=== PATIENT | male | born 1960 | race Caucasian/White ===

== ENCOUNTER 2020-03-08 08:32 | Emergency (ER) | payer BC ==
--- NOTE | 2020-03-08 09:11 | ER ---
Nurse's Notes [facility] Name: Shubham Sparks Age: 60 yrs Sex: Male : 1960 Arrival Date: 03/08/2020 Time: 08:34 Bed 8 Private MD: Diagnosis: Low back pain;Muscle spasm of back Presentation: 03/08 08:50 Chief complaint: Patient states: reports of left lower back pain that started vg1 yesterday, 03/07/2020. 08:50 Method Of Arrival: Ambulatory vg1 08:50 Coronavirus screen: Client denies travel out of the [place] in the last 14 days. Ebola vg1 Screen: Patient negative for fever greater than or equal to 101.5 degrees Fahrenheit, and additional compatible Ebola Virus Disease symptoms. Initial Sepsis Screen: Does the patient meet any 2 criteria? No. Patient's initial sepsis screen is negative. Does the patient have a suspected source of infection? No. Patient's initial sepsis screen is negative. Risk Assessment: Do you want to hurt yourself or someone else? Patient reports no desire to harm self or others. Onset of symptoms was March 07, 2020. 08:50 Acuity: HEVER 4 vg1 - Family history:: not pertinent. - Social history:: Smoking status: Patient denies any tobacco usage or history of. - Hospitalizations: : No recent hospitalization is reported. Screenin:55 Abuse screen: Denies threats or abuse. Nutritional screening: No deficits noted. vg1 Tuberculosis screening: No symptoms or risk factors identified. Fall Risk No fall in past 12 months (0 pts). No secondary diagnosis (0 pts). No IV (0 pts). Ambulatory Aid- None/Bed Rest/Nurse Assist (0 pts). Gait- Normal/Bed Rest/Wheelchair (0 pts) Mental Status- Oriented to own ability (0 pts). Total Tejeda Fall Scale indicates No Risk (0-24 pts). Assessment: 08:55 General: Appears in no apparent distress. Behavior is calm, cooperative. Pain: vg1 Complains of pain in Left lower back Pain currently is 5 out of 10 on a pain scale. at worst was 8 out of 10 on a pain scale. Pain began 1 day ago. Is continuous. Neuro: Level of Consciousness is awake, alert, obeys commands, Oriented to person, place, time, situation. Cardiovascular: Patient's skin is warm and dry. Respiratory: Airway is patent Respiratory effort is even, unlabored, Respiratory pattern is regular, symmetrical. GI: No signs and/or symptoms were reported involving the gastrointestinal system. : No signs and/or symptoms were reported regarding the genitourinary system. EENT: No signs and/or symptoms were reported regarding the EENT system. Derm: Skin is pink, warm \T\ dry. Musculoskeletal: Range of motion: intact in all extremities. Vital Signs: 09:00 BP 159 / 82; Pulse 50; Resp 18; Temp 98.2(TE); Pulse Ox 95% on R/A; vg1 09:30 BP 132 / 70; Pulse 53; Resp 18; Pulse Ox 100% on R/A; vg1 09:00 Patient stated 'I've always had a low heart rate'. vg1 ED Course: 08:34 Patient arrived in ED. ds1 08:55 Gudelia Vang, TATYANA is Primary Nurse. vg1 08:55 Patient has correct armband on for positive identification. Placed in gown. Bed in low vg1 position. Call light in reach. Pulse ox on. NIBP on. Door closed. Warm blanket given. 08:58 Raj Silva MD is Attending Physician. rn 09:15 Triage completed. vg1 09:36 No provider procedures requiring assistance completed. Patient did not have IV access vg1 during this emergency room visit. Administered Medications: 09:18 CANCELLED (Physician Discretion): Decadron - Dexamethasone 10 mg IVP once vg1 09:34 Drug: Decadron 10 mg Route: IM; Site: Ventrogluteal RIGHT; vg1 09:35 Follow up: Response: Medication administered at discharge. vg1 Outcome: 09:10 Discharge ordered by . rn 09:36 Discharged to home ambulatory. vg1 09:36 Condition: stable 09:36 Discharge instructions given to patient, Instructed on discharge instructions, follow up and referral plans. medication usage, Demonstrated understanding of instructions, follow-up care, medications, Prescriptions given X 2. 09:37 Patient left the ED. vg1 Signatures: Norma Reid ds1 Raj Silva MD MD rn Garcia, Victoria, RN RN vg1 Corrections: (The following items were deleted from the chart) 09:10 09:00 BP 159 / 82; Pulse 50bpm; Resp 18bpm; Pulse Ox 95% RA; Patient stated 'I've vg1 always had a low heart rate'.; vg1
--- NOTE | 2020-03-08 09:11 | EDPHYS ---
Physician Documentation [facility] Name: Shubham Sparks Age: 60 yrs Sex: Male : 1960 Arrival Date: 03/08/2020 Time: 08:34 Bed 8 Private MD: ED Physician Raj Sliva HPI: 03/08 09:03 This 60 yrs old Male presents to ER via Unassigned with complaints of Back rn Pain. 09:03 The patient presents with pain that is chronic, with no known mechanism of injury. The rn symptoms are located in the low back. 09:03 Onset: The symptoms/episode began/occurred yesterday. The pain does not radiate. rn Associated signs and symptoms: Pertinent positives: none Pertinent negatives: abdominal pain, dysuria, hematuria, incontinence, nausea, numbness, tingling, urinary retention, vomiting, weakness. The problem was sustained without known cause. Modifying factors: The patient symptoms are alleviated by remaining still, the patient symptoms are aggravated by any movement, bending. Severity of symptoms: At their worst the symptoms were moderate, in the emergency department the symptoms are unchanged. The patient has experienced similar episodes in the past. The patient has not recently seen a physician. Reports back pain, no acute injury, has had back pain since , no surgery, reports intermittent back problems, improves with steroid injections and muscle relaxers. No bowel/bladder issues. no weakness of legs. + left lower back pain. . - Family history:: not pertinent. - Social history:: Smoking status: Patient denies any tobacco usage or history of. - Hospitalizations: : No recent hospitalization is reported. ROS: 09:03 Constitutional: Negative for fever, chills, and weight loss, Abdomen/GI: Negative for rn abdominal pain, nausea, vomiting, diarrhea, and constipation, Back: Negative for injury. + pain to left lower back : Negative for injury, bleeding, discharge, and swelling, MS/Extremity: Negative for injury and deformity, Neuro: Negative for headache, weakness, numbness, tingling, and seizure. Exam: 09:03 Constitutional: This is a well developed, well nourished patient who is awake, alert, rn and in no acute distress. Back: No spinal tenderness. + mild tenderness left lower back. No skin changes. Skin: Warm, dry MS/ Extremity: Pulses equal, no cyanosis. Neurovascular intact. Neuro: Awake and alert, Motor strength 5/5 in all extremities. Sensory grossly intact. Vital Signs: 09:00 BP 159 / 82; Pulse 50; Resp 18; Temp 98.2(TE); Pulse Ox 95% on R/A; vg1 09:30 BP 132 / 70; Pulse 53; Resp 18; Pulse Ox 100% on R/A; vg1 09:00 Patient stated 'I've always had a low heart rate'. vg1 MDM: 08:58 Patient medically screened. rn 09:03 Differential diagnosis: chronic back pain, muscle spasm, radiculopathy. Data reviewed: rn vital signs, nurses notes, and as a result, I will discharge patient. Counseling: I had a detailed discussion with the patient and/or guardian regarding: the historical points, exam findings, and any diagnostic results supporting the discharge/admit diagnosis, the need for outpatient follow up, to return to the emergency department if symptoms worsen or persist or if there are any questions or concerns that arise at home. Administered Medications: :18 CANCELLED (Physician Discretion): Decadron - Dexamethasone 10 mg IVP once vg1 09:34 Drug: Decadron 10 mg Route: IM; Site: Ventrogluteal RIGHT; vg1 09:35 Follow up: Response: Medication administered at discharge. vg1 Disposition: 03/08/20 09:10 Discharged to Home. Impression: Low back pain, Muscle spasm of back. - Condition is Stable. - Discharge Instructions: Back Pain, Adult, Muscle Cramps and Spasms, Back Injury Prevention, [id number], Back Exercises, [id number]. - Prescriptions for Cyclobenzaprine 10 mg Oral Tablet - take 1 tablet by ORAL route every 8 hours As needed; 15 tablet. Medrol (Igor) 4 mg Oral Tablets, Dose Pack - take 1 tablet by ORAL route as directed - follow package instructions; 1 packet. - Medication Reconciliation Form, Thank You Letter, Antibiotic Education, Prescription Opioid Use form. - Follow up: Private Physician; When: As needed; Reason: Recheck today's complaints, Re-evaluation by your physician. - Problem is an acute exacerbation. - Symptoms have improved. Signatures: Raj Silva MD MD rn Garcia, Victoria, RN RN vg1 Corrections: (The following items were deleted from the chart) 09:18 09:09 Decadron - Dexamethasone 10 mg IVP once ordered. rn vg1 09:37 09:10 03/08/2020 09:10 Discharged to Home. Impression: Low back pain; Muscle spasm of vg1 back. Condition is Stable. Forms are Medication Reconciliation Form, Thank You Letter, Antibiotic Education, Prescription Opioid Use. Follow up: Private Physician; When: As needed; Reason: Recheck today's complaints, Re-evaluation by your physician. Problem is an acute exacerbation. Symptoms have improved. cuong
[2020-03-08] MEDS ORDERED: dexAMETHasone 4 MG/ML VIAL ONE (09:38)
[2020-03-08 10:06] VITALS: TEMP 98.2
[2020-03-08 10:08] VITALS: BP 132/70; O2SAT 100
== END 2020-03-08 09:37 | disposition home or self-care (01) ==
LOC: ER 08:32
DX: M62.830 Muscle spasm of back (principal)
CPT/HCPCS: 96372; 99283; J1100